=== PATIENT | female | born 1980 | race African-American/Black ===

== ENCOUNTER 2019-07-09 05:36 | Inpatient (IN) ==
[2019-07-09 06:28] LABS: Basophils % 0.4 % (0.0-0.8); Eosinophils # 0.1 10*3/uL (0.0-0.87); Eosinophils % 1.6 % (0.00-10.9); Hemoglobin 10.5 GM/DL (12.0-16.0); Immature Granulocytes % 0.5 %; Immature Granulocytes Absolute 0.04 #; Lymphocytes # 1.9 10*3/uL (1.4-4.0); Lymphocytes % 25.1 % (21.3-54.2); Mean Corpuscular Volume 78.7 FL (87-102); Neutrophils % 68.4 % (38.7-73.9); Platelet Count 180 T/CUMM (130-400); Red Blood Count 4.45 MC/CUMM (3.8-5.5); Red Cell Distribution Width 18.6 % (9.3-17.3); White Blood Count 7.4 T/CUMM (4-12)
[2019-07-09 07:01] LABS: Hypochromasia 3+; Polychromasia Few
[2019-07-09 07:02] LABS: Platelet Estimate Normal
[2019-07-09] MEDS ORDERED: LIDOCAINE 1% 5 ML VIAL ONE (07:34)
[2019-07-09] MEDS ORDERED: ROPIVACAINE 0.5% 30 ML VIAL ONE (07:34)
[2019-07-09] MEDS ORDERED: DEXAMETHASONE 4 MG/1 ML VIAL ONE ×2 (07:34→11:45)
[2019-07-09] MEDS ORDERED: ceFAZolin 1,000 MG VIAL ONE (07:40)
[2019-07-09] MEDS: LACTATED RINGERS 1,000 ML IV SCH ×3 (07:45→20:57)
[2019-07-09] MEDS ORDERED: ceFAZolin 3,000 MG in SYRINGE 1 EACH IV ONE (09:00)
[2019-07-09] MEDS ORDERED: VASOPRESSIN 20 UNITS/ML VIAL ONE (09:43)
[2019-07-09] MEDS ORDERED: METHYLENE BLUE 10 ML VIAL IV ONE (10:27)
[2019-07-09] MEDS ORDERED: BENZOCAINE/MENTHOL LOZENGE 18/BOX PO PRN (11:39)
[2019-07-09] MEDS ORDERED: BISACODYL 10 MG SUPP RECTAL PRN (11:39)
[2019-07-09] MEDS ORDERED: MAGNESIUM HYDROXIDE SUSP 30 ML UDCUP PO PRN (11:39)
[2019-07-09] MEDS ORDERED: ONDANSETRON 4 MG/2 ML VIAL IV PRN (11:39)
[2019-07-09] MEDS ORDERED: DOCUSATE SODIUM 100 MG CAPSULE PO PRN (11:39)
[2019-07-09] MEDS ORDERED: ACETAMINOPHEN 325 MG TABLET PO PRN (11:39)
[2019-07-09] MEDS ORDERED: NALOXONE 0.4 MG/ML VIAL IV PRN (11:43)
[2019-07-09] MEDS ORDERED: propofoL 200 MG/20 ML VIAL IV ONE (11:44)
[2019-07-09] MEDS ORDERED: LIDOCAINE 2% 5 ML VIAL ONE (11:44)
[2019-07-09] MEDS ORDERED: LACTATED RINGERS 1,000 ML IV ONE (11:45)
[2019-07-09] MEDS ORDERED: SEVOFLURANE 1 UNIT/15 MINUTE INH ONE (11:45)
[2019-07-09] MEDS ORDERED: ACETAMINOPHEN 1,000 MG/100 ML VIAL IV ONE (11:45)
[2019-07-09] MEDS ORDERED: NEOSTIGMINE 10 MG/10 ML VIAL ONE (11:45)
[2019-07-09] MEDS ORDERED: fentaNYL 250 MCG/5 ML VIAL ONE (11:45)
[2019-07-09] MEDS ORDERED: ONDANSETRON 4 MG/2 ML VIAL ONE (11:45)
[2019-07-09] MEDS ORDERED: GLYCOPYRROLATE 0.4 MG/2 ML VIAL ONE ×2 (11:45)
[2019-07-09] MEDS ORDERED: ROCURONIUM 100 MG/10 ML VIAL IV ONE (11:45)
[2019-07-09] MEDS ORDERED: MIDAZOLAM 2 MG/2 ML VIAL ONE (11:45)
[2019-07-09] MEDS ORDERED: OXYBUTYNIN 5 MG TABLET PO PRN (11:47)
[2019-07-09] MEDS ORDERED: HYDROmorphone PCA 30 MG/30 ML SYRINGE IV SCH (12:00)
[2019-07-09] MEDS ORDERED: LACTATED RINGERS 1,000 ML IV SCH (12:00)
[2019-07-09] MEDS ORDERED: HYDROmorphone PCA 30 MG/30 ML SYRINGE IV ONE (12:00)
[2019-07-09] MEDS: KETOROLAC 30 MG/1 ML VIAL IM SCH ×3 (14:04→23:46)
[2019-07-09 14:07] LABS: Apearance,Urine CLEAR (Clear); Bilirubin,Urine Negative (Negative); Blood, Urine Negative (Negative); Glucose,Urine (UA) Negative (Negative); Ketones,Urine Negative (Negative); Mucus,Urine Occasional /LPF (Occasional); Nitrite,Urine Negative (Negative); Protein,Urine Negative; RBC,Urine <1 /HPF (0-4); Squamous Epithelial Cell,Urine Occasional /HPF (0-10); Urine Color Yellow (Yellow); Urine Specific Gravity 1.013 (1.001-1.035); Urine Urobilinogen < 2.0 EU/DL (0.2-1.0); WBC,Urine <1 /HPF (0-6)
[2019-07-09] MEDS: ceFAZolin 2,000 MG in PREMIX 1 EACH IV SCH (18:00)
[2019-07-09] MEDS: METOCLOPRAMIDE 10 MG/2 ML VIAL IV SCH (20:01)
[2019-07-10] MEDS: ceFAZolin 2,000 MG in PREMIX 1 EACH IV SCH (02:31)
[2019-07-10] MEDS: METOCLOPRAMIDE 10 MG/2 ML VIAL IV SCH ×3 (03:45→20:39)
[2019-07-10 05:41] LABS: Basophils % 0.2 % (0.0-0.8); Eosinophils % 0.1 % (0.00-10.9); Hematocrit 27.7 VOL% (35.7-47.0); Immature Granulocytes % 0.5 %; Immature Granulocytes Absolute 0.05 #; Lymphocytes # 1.1 10*3/uL (1.4-4.0); Lymphocytes % 10.1 % (21.3-54.2); Mean Corpuscular HGB Conc 28.9 GM/DL (32-36); Mean Corpuscular Volume 80.3 FL (87-102); Monocytes % 6.5 % (1.7-12.7); Neutrophils % 82.6 % (38.7-73.9); Platelet Count 183 T/CUMM (130-400); Red Blood Count 3.45 MC/CUMM (3.8-5.5); Red Cell Distribution Width 18.3 % (9.3-17.3)
[2019-07-10 06:03] LABS: Microcytosis 2+; Stomatocytes Few; Target Cells 1+
[2019-07-10 06:04] LABS: Hypochromasia 3+; Platelet Estimate Normal
[2019-07-10] MEDS: KETOROLAC 30 MG/1 ML VIAL IM SCH (06:20)
[2019-07-10] MEDS: LACTATED RINGERS 1,000 ML IV SCH (10:05)
[2019-07-10] MEDS: IBUPROFEN 800 MG TABLET PO PRN (16:30)
[2019-07-10] MEDS: SIMETHICONE CHEW 80 MG TABLET PO PRN (20:38)
[2019-07-11] MEDS: IBUPROFEN 800 MG TABLET PO PRN ×3 (00:09→17:19)
[2019-07-11] MEDS: SIMETHICONE CHEW 80 MG TABLET PO PRN (17:17)
[2019-07-12 09:04] VITALS: BP 130/66
[2019-07-12] MEDS: IBUPROFEN 800 MG TABLET PO PRN (09:19)
== END 2019-07-12 10:15 | disposition home or self-care (01) | DRG 742 ==
LOC: N.SDS 05:36 → N.SDSINP 05:38 → N.OB 08:25 → EDSTATUS 13:45
PROVIDERS: ADMIT Obstetrics & Gynecology; ATTEND Obstetrics & Gynecology